=== PATIENT | male | born 1995 | race Caucasian/White ===

== ENCOUNTER 2016-08-23 15:15 | Emergency (ER) | payer MEDICAID ==
[~2016-08-23] VITALS: Ht 175.3 cm; Wt 139.0 kg
[2016-08-23 15:26] VITALS: BP 109/64
== END 2016-08-23 16:29 | disposition home or self-care (01) ==
LOC: EMS 15:28
DX: Z48.02 Encounter for removal of sutures (principal)
CPT/HCPCS: 99281

== ENCOUNTER 2017-02-02 23:51 | Emergency (ER) | payer MEDICAID ==
[~2017-02-02] VITALS: Ht 172.7 cm; Wt 60.0 kg
[2017-02-03 02:47] VITALS: BP 122/67
[2017-02-03] MEDS ORDERED: IBUPROFEN 600 MG TABLET PO ONE (03:00)
[2017-02-03] MEDS ORDERED: HYDROCODONE/ACETAMINOPHEN 5-325 MG TABLET PO ONE (03:00)
== END 2017-02-03 03:01 | disposition home or self-care (01) ==
LOC: EMS 23:52
DX: K08.89 Other specified disorders of teeth and supporting structures (principal)
CPT/HCPCS: 99283